=== PATIENT | female | born 1985 | race Caucasian/White ===

== ENCOUNTER 2018-02-19 20:03 | Emergency (ER) | payer MEDICAID ==
[~2018-02-19] VITALS: Ht 165.1 cm; Wt 96.6 kg
[~2018-02-19 20:03] MED LIST: CEPH250C16 PO; IBUP-974 PO
[2018-02-19 20:10] VITALS: BP 135/66
--- NOTE | 2018-02-19 20:17 | NUR ---
URINE COLLECTED, PT RETURNED TO LOBBY
--- NOTE | 2018-02-19 21:06 | NUR ---
32/F CAME IN W C/O 5/10 LOWER ABD CRAMPING, CONSTANT WITH BROWN VAGINAL DISCHARGE X TODAY. IUP 8 WEEKS, A1. ABD SOFT, GRAVID, BS ACTIVE X 4. DENIES OTHER PMH/RX/OTC
--- NOTE | 2018-02-19 21:47 | NUR ---
ULTRASOUND AT BEDSIDE
[2018-02-19 21:52] LABS: BASOPHILS # (AUTO) 0.1 K/uL (0.00-0.22); BASOPHILS % (AUTO) 0.6 % (0.0-2.0); EOSINOPHILS # (AUTO) 0.4 K/uL (0-0.4); EOSINOPHILS % (AUTO) 3.1 % (0.0-4.0); HEMATOCRIT 33.6 % (36-48); HEMOGLOBIN 11.2 g/dL (12.0-16.0); LYMPHOCYTES # (AUTO) 3.6 K/uL (2.5-16.5); LYMPHOCYTES % (AUTO) 31.1 % (20.5-51.1); MEAN CORPUSCULAR HEMOGLOBIN 30 pg (27-31); MEAN CORPUSCULAR HGB CONC 33 g/dL (33-37); MEAN CORPUSCULAR VOLUME 91.7 fL (80-94); MONOCYTES # (AUTO) 0.6 K/uL (0.8-1.0); MONOCYTES % (AUTO) 5.5 % (1.7-9.3); NEUTROPHILS # (AUTO) 6.9 K/uL (1.8-7.7); NEUTROPHILS % (AUTO) 59.7 % (42.2-75.2); PLATELET COUNT (AUTO) 282 K/uL (140-450); RED BLOOD CELL COUNT(AUTO) 3.66 MIL/uL (4.20-5.40); RED CELL DISTRIBUTION WIDTH 13.2 % (11.6-13.7); WHITE BLOOD COUNT (AUTO) 11.6 K/uL (4.8-10.8)
[2018-02-19 22:12] LABS: ANION GAP 14.5 (8-16); CARBON DIOXIDE 22.5 mmol/L (21-32); CREATININE 0.5 mg/dL (0.6-1.3)
[2018-02-19 23:12] VITALS: BP 121/72
--- NOTE | 2018-02-19 23:12 | NUR ---
Patient discharged with v/s stable. Written and verbal after care instructions given and explained. Patient verbalized understanding. Ambulatory with to car. All questions addressed prior to discharge. Advised to follow up with PMD.
== END 2018-02-19 23:12 | disposition home or self-care (01) ==
LOC: MED 20:03
DX: O20.0 Threatened abortion (principal); Z3A.08 8 weeks gestation of pregnancy; Z79.899 Other long term (current) drug therapy
CPT/HCPCS: 36415; 76801; 80048; 81002; 81025; 84702; 85025; 86886; 86900; 86901; 99285; Q0092